=== PATIENT | female | born 1955 | race Caucasian/White ===

== ENCOUNTER 2021-05-12 15:09 | Inpatient (IN) ==
[2021-05-12 16:17] LABS: Basophils # 0.1 K/mcL (0.0-0.2); Basophils % 0.6 %; Eosinophils % 0.3 %; Hematocrit 49.9 % (35.3-44.9); Hemoglobin 15.2 g/dL (11.5-15.4); Immature Granulocytes % 0.3 % (0-4); Lymphocytes # 0.9 K/mcL (0.6-4.6); Lymphocytes % 9.9 %; Mean Corpuscular HGB Conc 30.5 g/dL (31.6-35.5); Mean Corpuscular Hemoglobin 27.3 pg (28.0-33.3); Mean Corpuscular Volume 89.6 fL (83.0-100.0); Mean Platelet Volume 9.4 fL (9.4-12.4); Monocytes % 11.4 %; Neutrophils # 6.8 K/mcL (1.6-8.9); Platelet Count 341 K/mcL (140-400); Red Blood Count 5.57 M/mcL (3.82-4.97); Red Cell Distribution Width 13.8 % (11.5-14.5); Segmented Neutrophils % 77.5 %; White Blood Count 8.8 K/mcL (4.3-11.1)
[2021-05-12 16:48] LABS: BUN/Creatinine Ratio 8 (6-26); Blood Urea Nitrogen 5 mg/dL (8-23); Carbon Dioxide 35 mEq/L (23-29); Chloride 98 mEq/L (98-107); Glucose 126 mg/dL (70-105); Osmolality,Calculated 287 (280-300); Potassium 3.8 mEq/L (3.5-5.1); Sodium 139 mEq/L (136-145); eGFR For African Americans > 60 (> 60); eGFR For Non-African Americans > 60 (> 60)
[2021-05-12 16:55] LABS: Troponin I < 0.03 ng/mL (< 0.04)
[2021-05-12] MEDS ORDERED: predniSONE 20 MG TABLET PO ONE (17:02)
[2021-05-12 18:14] LABS: Influenza A PCR Negative (Negative); Influenza B PCR Negative (Negative); Resp. Syncytial Virus PCR Negative (Negative); SARS-CoV-2 by PCR (In House) Negative (Negative)
[2021-05-12] MEDS ORDERED: Ipratropium/Albuterol Neb 3 ML IH ONE (18:35)
[2021-05-12] MEDS ORDERED: *HR* Promethazine 25 MG/ML VIAL IM PRN (20:21)
[2021-05-12] MEDS ORDERED: Acetaminophen 325 MG TABLET PO PRN (20:21)
[2021-05-12] MEDS ORDERED: Ondansetron 4 MG/2 ML VIAL IVP PRN (20:21)
[2021-05-12] MEDS ORDERED: Naloxone 0.4 MG/ML INJ IVP PRN (20:21)
[2021-05-12] MEDS ORDERED: Melatonin 3 MG TABLET PO PRN (20:21)
[2021-05-12] MEDS ORDERED: Ipratropium/Albuterol Neb 3 ML IH PRN (20:34)
[2021-05-12] MEDS: *HR* OxyCODONE/APAP 5/325 TABLET PO PRN (23:12)
[2021-05-12] MEDS: MethylPREDNISolone 40 MG/ML VIAL IVP SCH (23:12)
[2021-05-12] MEDS: Ipratropium/Albuterol Neb 3 ML IH SCH (23:51)
[2021-05-13] MEDS: Azithromycin 500 MG in 0.9 % Sodium Chloride 250 ML IVPB SCH (00:29)
[2021-05-13] MEDS: Ipratropium/Albuterol Neb 3 ML IH SCH ×6 (04:12→23:56)
[2021-05-13] MEDS: *HR* OxyCODONE/APAP 5/325 TABLET PO PRN ×2 (05:13→20:38)
[2021-05-13 06:04] LABS: Basophils % 0.4 %; Hematocrit 50.8 % (35.3-44.9); Hemoglobin 15.7 g/dL (11.5-15.4); Immature Granulocytes % 0.6 % (0-4); Lymphocytes # 0.4 K/mcL (0.6-4.6); Lymphocytes % 6.4 %; Mean Corpuscular HGB Conc 30.9 g/dL (31.6-35.5); Mean Corpuscular Hemoglobin 27.6 pg (28.0-33.3); Mean Corpuscular Volume 89.4 fL (83.0-100.0); Mean Platelet Volume 10.1 fL (9.4-12.4); Monocytes # 0.2 K/mcL (0.0-1.3); Monocytes % 2.5 %; Neutrophils # 6.2 K/mcL (1.6-8.9); Platelet Count 364 K/mcL (140-400); Red Blood Count 5.68 M/mcL (3.82-4.97); Red Cell Distribution Width 13.7 % (11.5-14.5); Segmented Neutrophils % 90.1 %; White Blood Count 6.9 K/mcL (4.3-11.1)
[2021-05-13 06:25] LABS: BUN/Creatinine Ratio 14 (6-26); Blood Urea Nitrogen 8 mg/dL (8-23); Calcium 9.2 mg/dL (8.6-10.3); Carbon Dioxide 28 mEq/L (23-29); Chloride 98 mEq/L (98-107); Glucose 185 mg/dL (70-105); Magnesium 1.8 mg/dL (1.6-2.6); Osmolality,Calculated 285 (280-300); Potassium 3.7 mEq/L (3.5-5.1); Sodium 136 mEq/L (136-145); eGFR For African Americans > 60 (> 60); eGFR For Non-African Americans > 60 (> 60)
[2021-05-13] MEDS: MethylPREDNISolone 40 MG/ML VIAL IVP SCH ×2 (08:27→15:13)
[2021-05-13] MEDS ORDERED: cloNIDine HCL 0.1 MG TABLET PO SCH (09:00)
[2021-05-13] MEDS ORDERED: *HR* HYDROcodone/Acet 5/325 mg TABLET PO PRN (09:45)
[2021-05-13] MEDS: Gabapentin 100 MG CAPSULE PO SCH ×3 (10:57→20:38)
[2021-05-13] MEDS ORDERED: Loratadine 10 MG TABLET PO SCH (16:45)
[2021-05-13] MEDS: *HR* Heparin 5,000 UNIT/ML VIAL SQ SCH (17:14)
[2021-05-13] MEDS: cloNIDine HCL 0.1 MG TABLET PO SCH (20:37)
[2021-05-14] MEDS: MethylPREDNISolone 40 MG/ML VIAL IVP SCH ×4 (00:04→23:07)
[2021-05-14] MEDS: Azithromycin 500 MG in 0.9 % Sodium Chloride 250 ML IVPB SCH ×2 (00:05→23:10)
[2021-05-14] MEDS: *HR* OxyCODONE/APAP 5/325 TABLET PO PRN ×3 (03:27→17:27)
[2021-05-14] MEDS: Ipratropium/Albuterol Neb 3 ML IH SCH ×6 (03:39→23:34)
[2021-05-14] MEDS: *HR* Heparin 5,000 UNIT/ML VIAL SQ SCH ×2 (05:08→17:20)
[2021-05-14 05:57] LABS: Basophils % 0.1 %; Hematocrit 52.9 % (35.3-44.9); Hemoglobin 15.6 g/dL (11.5-15.4); Immature Granulocytes % 0.6 % (0-4); Lymphocytes # 0.5 K/mcL (0.6-4.6); Lymphocytes % 7.3 %; Mean Corpuscular HGB Conc 29.5 g/dL (31.6-35.5); Mean Corpuscular Hemoglobin 26.5 pg (28.0-33.3); Mean Corpuscular Volume 89.8 fL (83.0-100.0); Monocytes # 0.4 K/mcL (0.0-1.3); Monocytes % 6.1 %; Neutrophils # 6.2 K/mcL (1.6-8.9); Platelet Count 387 K/mcL (140-400); Red Blood Count 5.89 M/mcL (3.82-4.97); Red Cell Distribution Width 13.7 % (11.5-14.5); Segmented Neutrophils % 85.9 %; White Blood Count 7.2 K/mcL (4.3-11.1)
[2021-05-14 06:21] LABS: BUN/Creatinine Ratio 17 (6-26); Blood Urea Nitrogen 12 mg/dL (8-23); Calcium 9.1 mg/dL (8.6-10.3); Carbon Dioxide 31 mEq/L (23-29); Chloride 98 mEq/L (98-107); Glucose 179 mg/dL (70-105); Osmolality,Calculated 290 (280-300); Potassium 3.8 mEq/L (3.5-5.1); Sodium 138 mEq/L (136-145); eGFR For African Americans > 60 (> 60); eGFR For Non-African Americans > 60 (> 60)
[2021-05-14] MEDS ORDERED: Isovue-370 500 ML BOTTLE IVP ONE (07:19)
[2021-05-14] MEDS: Gabapentin 100 MG CAPSULE PO SCH (07:38)
[2021-05-14] MEDS ORDERED: Ipratropium 1 PUFF INHALER IH PRN (10:09)
[2021-05-14] MEDS: Gabapentin 300 MG CAPSULE PO SCH ×3 (12:57→21:59)
[2021-05-14] MEDS ORDERED: Melatonin 3 MG TABLET PO PRN (15:16)
[2021-05-14] MEDS: *HR* LORazepam 2 MG/ML VIAL IVP PRN ×2 (17:20→23:45)
[2021-05-14 21:51] LABS: ABG Base Excess 6 mEq/L (-2 to 3); ABG HCO3 39 mEq/L (21-27); ABG Oxygen Saturation 84 % (95-98); ABG PCO2 93 mmHg (35-45); ABG PH 7.23 pH Units (7.32-7.45); ABG PO2 62 mmHg (85-104); ABG TCO2 42 mEq/L (20-26)
[2021-05-14] MEDS: cloNIDine HCL 0.1 MG TABLET PO SCH (21:59)
[2021-05-14] MEDS: Loratadine 10 MG TABLET PO SCH (21:59)
[2021-05-14] MEDS ORDERED: Haloperidol Lactate 5 MG/ML VIAL IVP ONE (22:55)
[2021-05-15] MEDS ORDERED: *HR* LORazepam 2 MG/ML VIAL IVP STA (01:25)
[2021-05-15] MEDS ORDERED: Haloperidol Lactate 5 MG/ML VIAL IVP ONE (02:56)
[2021-05-15] MEDS: Ipratropium/Albuterol Neb 3 ML IH SCH ×7 (03:08→23:28)
[2021-05-15] MEDS ORDERED: *HR* Midazolam HCl 5 MG/5 ML VIAL IVP ONE ×3 (03:37→16:54)
[2021-05-15] MEDS ORDERED: Artificial Tears SOLN 15 ML BOTTLE BOTH EYES PRN (03:50)
[2021-05-15 04:09] LABS: ABG Base Excess 7 mEq/L (-2 to 3); ABG HCO3 40 mEq/L (21-27); ABG Oxygen Saturation 100 % (95-98); ABG PCO2 91 mmHg (35-45); ABG PH 7.26 pH Units (7.32-7.45); ABG PO2 409 mmHg (85-104); ABG TCO2 43 mEq/L (20-26); Blood Gas VT 400 cc
[2021-05-15] MEDS: FentaNYL (PF) 1,000 MCG/100 ML IV.SOLN IVC SCH ×3 (04:22→17:06)
[2021-05-15] MEDS: Midazolam HCl 50 MG/100 ML IV.SOLN IVC SCH ×2 (05:24→13:46)
[2021-05-15 05:27] LABS: ABG Base Excess 8 mEq/L (-2 to 3); ABG HCO3 41 mEq/L (21-27); ABG Oxygen Saturation 100 % (95-98); ABG PCO2 91 mmHg (35-45); ABG PH 7.26 pH Units (7.32-7.45); ABG PO2 315 mmHg (85-104); ABG TCO2 44 mEq/L (20-26); Blood Gas Modality ASSIST CONTROL; Blood Gas VT 450 cc
[2021-05-15 06:38] LABS: Hemoglobin 16.2 g/dL (11.5-15.4); Immature Granulocytes % 0.4 % (0-4); Lymphocytes % 5.2 %
[2021-05-15 06:39] LABS: Basophils % 0.2 %; Hematocrit 54.8 % (35.3-44.9); Lymphocytes # 0.6 K/mcL (0.6-4.6); Mean Corpuscular HGB Conc 29.6 g/dL (31.6-35.5); Mean Corpuscular Hemoglobin 27.3 pg (28.0-33.3); Mean Corpuscular Volume 92.4 fL (83.0-100.0); Mean Platelet Volume 10.1 fL (9.4-12.4); Monocytes # 0.8 K/mcL (0.0-1.3); Monocytes % 7.3 %; Neutrophils # 9.7 K/mcL (1.6-8.9); Platelet Count 420 K/mcL (140-400); Red Blood Count 5.93 M/mcL (3.82-4.97); Red Cell Distribution Width 13.7 % (11.5-14.5); Segmented Neutrophils % 86.9 %; White Blood Count 11.1 K/mcL (4.3-11.1)
[2021-05-15 06:52] LABS: BUN/Creatinine Ratio 17 (6-26); Blood Urea Nitrogen 10 mg/dL (8-23); Calcium 9.1 mg/dL (8.6-10.3); Carbon Dioxide 34 mEq/L (23-29); Chloride 98 mEq/L (98-107); Glucose 206 mg/dL (70-105); Osmolality,Calculated 295 (280-300); Potassium 3.7 mEq/L (3.5-5.1); Sodium 140 mEq/L (136-145); eGFR For African Americans > 60 (> 60); eGFR For Non-African Americans > 60 (> 60)
[2021-05-15] MEDS: Artificial Tears SOLN 15 ML BOTTLE BOTH EYES SCH ×6 (07:35→23:36)
[2021-05-15] MEDS: *HR* Heparin 5,000 UNIT/ML VIAL SQ SCH ×2 (07:40→19:56)
[2021-05-15] MEDS: MethylPREDNISolone 40 MG/ML VIAL IVP SCH ×2 (07:42→16:55)
[2021-05-15] MEDS: Loratadine 10 MG TABLET PO SCH (07:44)
[2021-05-15] MEDS: Gabapentin 300 MG CAPSULE PO SCH ×4 (07:45→19:56)
[2021-05-15] MEDS: Chlorhexidine Rinse 15 ML MOUTHWASH MM SCH ×2 (07:51→19:56)
[2021-05-15 12:23] LABS: ABG Base Excess 10 mEq/L (-2 to 3); ABG HCO3 39 mEq/L (21-27); ABG Oxygen Saturation 99 % (95-98); ABG PCO2 65 mmHg (35-45); ABG PH 7.38 pH Units (7.32-7.45); ABG PO2 124 mmHg (85-104); ABG TCO2 41 mEq/L (20-26); Blood Gas VT 450 cc
[2021-05-15] MEDS ORDERED: *HR* Etomidate 20 MG/10 ML AMPUL IVP ONE (16:54)
[2021-05-15] MEDS ORDERED: *HR* Midazolam HCl 2 MG/2 ML VIAL IVP ONE (16:54)
[2021-05-15] MEDS ORDERED: *HR* Rocuronium Bromide 50 MG/5 ML VIAL IVP ONE (16:54)
[2021-05-15] MEDS: cloNIDine HCL 0.1 MG TABLET PO SCH (19:56)
[2021-05-15] MEDS: Furosemide 40 MG/4 ML VIAL IVP SCH (19:56)
[2021-05-15] MEDS: FentaNYL (PF) 2,500 MCG/50 ML IV.SOLN IVC SCH (23:35)
[2021-05-15] MEDS: Azithromycin 500 MG in 0.9 % Sodium Chloride 250 ML IVPB SCH (23:36)
[2021-05-16] MEDS: MethylPREDNISolone 40 MG/ML VIAL IVP SCH ×4 (00:10→23:56)
[2021-05-16] MEDS: Midazolam HCl 50 MG/100 ML IV.SOLN IVC SCH ×2 (01:08→15:28)
[2021-05-16] MEDS: Ipratropium/Albuterol Neb 3 ML IH SCH ×5 (03:53→19:56)
[2021-05-16 04:18] LABS: ABG Base Excess 10 mEq/L (-2 to 3); ABG HCO3 37 mEq/L (21-27); ABG Oxygen Saturation 88 % (95-98); ABG PCO2 54 mmHg (35-45); ABG PH 7.44 pH Units (7.32-7.45); ABG PO2 55 mmHg (85-104); ABG TCO2 38 mEq/L (20-26); Blood Gas VT 360 cc
[2021-05-16] MEDS: Artificial Tears SOLN 15 ML BOTTLE BOTH EYES SCH ×6 (05:10→23:54)
[2021-05-16] MEDS: Dexmedetomidine HCl 400 MCG/100 ML MLS IVC SCH (06:22)
[2021-05-16] MEDS: Gabapentin 300 MG CAPSULE PO SCH ×4 (08:08→19:37)
[2021-05-16] MEDS: Loratadine 10 MG TABLET PO SCH (08:08)
[2021-05-16] MEDS: Chlorhexidine Rinse 15 ML MOUTHWASH MM SCH ×2 (08:08→19:36)
[2021-05-16] MEDS: *HR* Heparin 5,000 UNIT/ML VIAL SQ SCH ×3 (08:09→19:37)
[2021-05-16] MEDS: Furosemide 40 MG/4 ML VIAL IVP SCH ×2 (08:09→19:37)
[2021-05-16] MEDS: FentaNYL (PF) 2,500 MCG/50 ML IV.SOLN IVC SCH ×2 (08:30→18:41)
[2021-05-16] MEDS: Pantoprazole 40 MG VIAL IVP SCH (12:10)
[2021-05-16] MEDS: Azithromycin 500 MG in 0.9 % Sodium Chloride 250 ML IVPB SCH (23:55)
[2021-05-17] MEDS: Ipratropium/Albuterol Neb 3 ML IH SCH ×3 (00:36→10:27)
[2021-05-17] MEDS: Midazolam HCl 50 MG/100 ML IV.SOLN IVC SCH ×2 (03:20→14:41)
[2021-05-17] MEDS: Artificial Tears SOLN 15 ML BOTTLE BOTH EYES SCH ×5 (04:36→20:30)
[2021-05-17 05:00] LABS: ABG Base Excess 10 mEq/L (-2 to 3); ABG HCO3 39 mEq/L (21-27); ABG Oxygen Saturation 93 % (95-98); ABG PCO2 65 mmHg (35-45); ABG PH 7.38 pH Units (7.32-7.45); ABG PO2 70 mmHg (85-104); ABG TCO2 41 mEq/L (20-26); Blood Gas Modality ASSIST CONTROL; Blood Gas VT 360 cc
[2021-05-17 05:33] LABS: Basophils % 0.1 %; Hematocrit 53.3 % (35.3-44.9); Hemoglobin 15.8 g/dL (11.5-15.4); Immature Granulocytes % 0.4 % (0-4); Lymphocytes # 0.8 K/mcL (0.6-4.6); Lymphocytes % 10.1 %; Mean Corpuscular HGB Conc 29.6 g/dL (31.6-35.5); Mean Corpuscular Hemoglobin 26.6 pg (28.0-33.3); Mean Corpuscular Volume 89.7 fL (83.0-100.0); Mean Platelet Volume 9.9 fL (9.4-12.4); Monocytes # 0.6 K/mcL (0.0-1.3); Monocytes % 8.4 %; Platelet Count 304 K/mcL (140-400); Red Blood Count 5.94 M/mcL (3.82-4.97); Red Cell Distribution Width 13.9 % (11.5-14.5); White Blood Count 7.4 K/mcL (4.3-11.1)
[2021-05-17 05:47] LABS: BUN/Creatinine Ratio 37 (6-26); Blood Urea Nitrogen 24 mg/dL (8-23); Calcium 8.6 mg/dL (8.6-10.3); Carbon Dioxide 37 mEq/L (23-29); Chloride 94 mEq/L (98-107); Glucose 206 mg/dL (70-105); Magnesium 2.3 mg/dL (1.6-2.6); Osmolality,Calculated 302 (280-300); Potassium 3.3 mEq/L (3.5-5.1); Sodium 141 mEq/L (136-145); eGFR For African Americans > 60 (> 60); eGFR For Non-African Americans > 60 (> 60)
[2021-05-17] MEDS: FentaNYL (PF) 2,500 MCG/50 ML IV.SOLN IVC SCH ×2 (08:12→20:11)
[2021-05-17] MEDS: Pantoprazole 40 MG VIAL IVP SCH (08:44)
[2021-05-17] MEDS: Gabapentin 300 MG CAPSULE PO SCH ×4 (08:45→20:58)
[2021-05-17] MEDS: MethylPREDNISolone 40 MG/ML VIAL IVP SCH ×2 (08:45→17:04)
[2021-05-17] MEDS: Chlorhexidine Rinse 15 ML MOUTHWASH MM SCH ×2 (08:45→20:56)
[2021-05-17] MEDS: *HR* Heparin 5,000 UNIT/ML VIAL SQ SCH ×3 (08:45→20:58)
[2021-05-17] MEDS: Furosemide 40 MG/4 ML VIAL IVP SCH ×2 (08:45→20:56)
[2021-05-17] MEDS: Loratadine 10 MG TABLET PO SCH (08:45)
[2021-05-17] MEDS: Dexmedetomidine HCl 400 MCG/100 ML MLS IVC SCH ×2 (08:46→17:57)
[2021-05-17] MEDS: Levalbuterol Neb 1.25 MG/3 ML IH SCH ×3 (10:41→21:15)
[2021-05-17] MEDS: Haloperidol Lactate 5 MG/ML VIAL IVP SCH ×2 (11:37→20:57)
[2021-05-17] MEDS ORDERED: Perflutren Lipid Microsphere 1.3 ML in 0.9 % Sodium Chloride 8.7 ML IVP PRN (17:20)
[2021-05-17] MEDS: Potassium Chloride Elixir 20 MEQ/15 ML UDC GTUBE SCH ×2 (17:27→22:21)
[2021-05-17] MEDS ORDERED: Potassium Chloride Elixir 20 MEQ/15 ML UDC GTUBE SCH (21:00)
[2021-05-18] MEDS: Midazolam HCl 50 MG/100 ML IV.SOLN IVC SCH (01:35)
[2021-05-18] MEDS: Artificial Tears SOLN 15 ML BOTTLE BOTH EYES SCH ×6 (02:53→19:47)
[2021-05-18] MEDS: MethylPREDNISolone 40 MG/ML VIAL IVP SCH ×3 (02:53→19:46)
[2021-05-18] MEDS: Levalbuterol Neb 1.25 MG/3 ML IH SCH ×4 (03:32→21:57)
[2021-05-18 04:33] LABS: ABG Base Excess 12 mEq/L (-2 to 3); ABG HCO3 43 mEq/L (21-27); ABG Oxygen Saturation 88 % (95-98); ABG PCO2 81 mmHg (35-45); ABG PH 7.33 pH Units (7.32-7.45); ABG PO2 63 mmHg (85-104); ABG TCO2 46 mEq/L (20-26); Blood Gas VT 360 cc
[2021-05-18] MEDS: Haloperidol Lactate 5 MG/ML VIAL IVP SCH ×3 (04:33→22:28)
[2021-05-18 07:20] LABS: Basophils % 0.1 %; Hematocrit 54.9 % (35.3-44.9); Hemoglobin 15.7 g/dL (11.5-15.4); Immature Granulocytes % 0.3 % (0-4); Lymphocytes # 0.5 K/mcL (0.6-4.6); Lymphocytes % 3.8 %; Mean Corpuscular HGB Conc 28.6 g/dL (31.6-35.5); Mean Corpuscular Hemoglobin 26.7 pg (28.0-33.3); Mean Corpuscular Volume 93.4 fL (83.0-100.0); Mean Platelet Volume 10.1 fL (9.4-12.4); Monocytes # 0.7 K/mcL (0.0-1.3); Monocytes % 5.1 %; Neutrophils # 12.4 K/mcL (1.6-8.9); Platelet Count 329 K/mcL (140-400); Red Blood Count 5.88 M/mcL (3.82-4.97); Segmented Neutrophils % 90.7 %; White Blood Count 13.7 K/mcL (4.3-11.1)
[2021-05-18 08:24] LABS: BUN/Creatinine Ratio 52 (6-26); Blood Urea Nitrogen 38 mg/dL (8-23); Calcium 8.9 mg/dL (8.6-10.3); Carbon Dioxide 39 mEq/L (23-29); Chloride 95 mEq/L (98-107); Glucose 212 mg/dL (70-105); Magnesium 2.7 mg/dL (1.6-2.6); Osmolality,Calculated 311 (280-300); Phosphorous 5.5 mg/dL (2.7-4.5); Potassium 4.3 mEq/L (3.5-5.1); Sodium 143 mEq/L (136-145); eGFR For African Americans > 60 (> 60); eGFR For Non-African Americans > 60 (> 60)
[2021-05-18] MEDS: Chlorhexidine Rinse 15 ML MOUTHWASH MM SCH ×2 (08:47→19:47)
[2021-05-18] MEDS: *HR* Heparin 5,000 UNIT/ML VIAL SQ SCH ×3 (08:48→19:46)
[2021-05-18] MEDS: Pantoprazole 40 MG VIAL IVP SCH (08:48)
[2021-05-18] MEDS: Loratadine 10 MG TABLET PO SCH (08:48)
[2021-05-18] MEDS: Gabapentin 300 MG CAPSULE PO SCH ×4 (08:48→19:48)
[2021-05-18] MEDS: Potassium Chloride Elixir 20 MEQ/15 ML UDC GTUBE SCH ×2 (08:48→19:48)
[2021-05-18] MEDS: Furosemide 40 MG/4 ML VIAL IVP SCH ×2 (08:48→19:45)
[2021-05-18 09:48] LABS: Platelet Estimate Normal (Normal); Stomatocytes 1+ (Not Present)
[2021-05-18] MEDS ORDERED: Fluconazole 400 MG/200 ML 400 MG/200 ML BAG IVPB ONE (13:00)
[2021-05-18] MEDS: Nystatin POWDER 30 GM BOTTLE TP SCH ×2 (14:42→19:56)
[2021-05-18] MEDS: cloNIDine HCL 0.1 MG TABLET PO SCH ×3 (19:22→19:48)
[2021-05-18] MEDS: Dexmedetomidine HCl 400 MCG/100 ML MLS IVC SCH (19:23)
[2021-05-18] MEDS: Nystatin SUSP 5 ML UD.LIQ BC SCH ×2 (19:47)
[2021-05-18 22:57] LABS: ABG Base Excess 16 mEq/L (-2 to 3); ABG HCO3 48 mEq/L (21-27); ABG Oxygen Saturation 100 % (95-98); ABG PCO2 77 mmHg (35-45); ABG PO2 200 mmHg (85-104); ABG TCO2 50 mEq/L (20-26)
[2021-05-19 00:13] LABS: ABG Base Excess 15 mEq/L (-2 to 3); ABG HCO3 46 mEq/L (21-27); ABG Oxygen Saturation 96 % (95-98); ABG PCO2 74 mmHg (35-45); ABG PO2 90 mmHg (85-104); ABG TCO2 48 mEq/L (20-26)
[2021-05-19] MEDS: MethylPREDNISolone 40 MG/ML VIAL IVP SCH ×4 (00:15→23:22)
[2021-05-19] MEDS: Artificial Tears SOLN 15 ML BOTTLE BOTH EYES SCH ×6 (00:15→19:46)
[2021-05-19] MEDS: Dexmedetomidine HCl 400 MCG/100 ML MLS IVC SCH ×4 (01:45→20:30)
[2021-05-19] MEDS ORDERED: *HR* LORazepam 2 MG/ML VIAL ONE (01:48)
[2021-05-19] MEDS: *HR* LORazepam 2 MG/ML VIAL IVP PRN ×5 (01:55→23:22)
[2021-05-19] MEDS: Levalbuterol Neb 1.25 MG/3 ML IH SCH ×4 (03:26→21:58)
[2021-05-19] MEDS: Haloperidol Lactate 5 MG/ML VIAL IVP SCH ×3 (04:41→19:46)
[2021-05-19 08:53] LABS: Basophils % 0.3 %; Hemoglobin 16.8 g/dL (11.5-15.4); Immature Granulocytes % 1.1 % (0-4); Lymphocytes # 0.6 K/mcL (0.6-4.6); Lymphocytes % 4.9 %; Mean Corpuscular HGB Conc 29.6 g/dL (31.6-35.5); Mean Corpuscular Hemoglobin 27.3 pg (28.0-33.3); Mean Corpuscular Volume 92.2 fL (83.0-100.0); Mean Platelet Volume 10.5 fL (9.4-12.4); Monocytes # 0.7 K/mcL (0.0-1.3); Monocytes % 5.3 %; Neutrophils # 10.9 K/mcL (1.6-8.9); Platelet Count 286 K/mcL (140-400); Red Blood Count 6.15 M/mcL (3.82-4.97); Red Cell Distribution Width 13.9 % (11.5-14.5); Segmented Neutrophils % 88.4 %; White Blood Count 12.4 K/mcL (4.3-11.1)
[2021-05-19 08:54] LABS: Hematocrit 56.7 % (35.3-44.9)
[2021-05-19] MEDS: Potassium Chloride Elixir 20 MEQ/15 ML UDC GTUBE SCH ×2 (09:02→19:47)
[2021-05-19] MEDS: Nystatin SUSP 5 ML UD.LIQ BC SCH ×4 (09:02→19:46)
[2021-05-19] MEDS: Chlorhexidine Rinse 15 ML MOUTHWASH MM SCH ×2 (09:02→19:47)
[2021-05-19] MEDS: *HR* Heparin 5,000 UNIT/ML VIAL SQ SCH ×3 (09:02→19:46)
[2021-05-19] MEDS: Pantoprazole 40 MG VIAL IVP SCH (09:03)
[2021-05-19] MEDS: cloNIDine HCL 0.1 MG TABLET PO SCH ×3 (09:03→19:47)
[2021-05-19] MEDS: Fluconazole 200 MG/100 ML 200 MG/100 ML BAG IVPB SCH (09:03)
[2021-05-19] MEDS: Gabapentin 300 MG CAPSULE PO SCH ×4 (09:03→19:47)
[2021-05-19] MEDS: Loratadine 10 MG TABLET PO SCH (09:03)
[2021-05-19] MEDS: Furosemide 40 MG/4 ML VIAL IVP SCH ×2 (09:03→19:46)
[2021-05-19] MEDS: Nystatin POWDER 30 GM BOTTLE TP SCH ×3 (09:04→20:06)
[2021-05-19 09:27] LABS: BUN/Creatinine Ratio 60 (6-26); Blood Urea Nitrogen 32 mg/dL (8-23); Calcium 9.5 mg/dL (8.6-10.3); Carbon Dioxide 44 mEq/L (23-29); Chloride 92 mEq/L (98-107); Glucose 219 mg/dL (70-105); Magnesium 2.7 mg/dL (1.6-2.6); Osmolality,Calculated 308 (280-300); Phosphorous 3.2 mg/dL (2.7-4.5); Potassium 4.6 mEq/L (3.5-5.1); Sodium 142 mEq/L (136-145); eGFR For African Americans > 60 (> 60); eGFR For Non-African Americans > 60 (> 60)
[2021-05-19 10:01] LABS: ABG Base Excess 21 mEq/L (-2 to 3); ABG HCO3 55 mEq/L (21-27); ABG Oxygen Saturation 99 % (95-98); ABG PCO2 89 mmHg (35-45); ABG PO2 151 mmHg (85-104); ABG TCO2 > 50 mEq/L (20-26); Blood Gas Pressure Support 16 cm H2O
[2021-05-19] MEDS ORDERED: *HR* Metoprolol 5 MG/5 ML VIAL IVP ONE ×2 (16:50→17:02)
[2021-05-20] MEDS: Artificial Tears SOLN 15 ML BOTTLE BOTH EYES SCH ×4 (00:28→21:45)
[2021-05-20] MEDS: Dexmedetomidine HCl 400 MCG/100 ML MLS IVC SCH ×4 (01:28→22:55)
[2021-05-20] MEDS: Levalbuterol Neb 1.25 MG/3 ML IH SCH ×4 (03:15→21:45)
[2021-05-20] MEDS: Haloperidol Lactate 5 MG/ML VIAL IVP SCH ×2 (03:22→22:56)
[2021-05-20] MEDS: *HR* LORazepam 2 MG/ML VIAL IVP PRN ×2 (05:18→21:46)
[2021-05-20] MEDS: Pantoprazole 40 MG VIAL IVP SCH (08:33)
[2021-05-20] MEDS: MethylPREDNISolone 40 MG/ML VIAL IVP SCH ×2 (08:33→16:13)
[2021-05-20] MEDS: *HR* Heparin 5,000 UNIT/ML VIAL SQ SCH ×2 (08:34→21:52)
[2021-05-20] MEDS: Fluconazole 200 MG/100 ML 200 MG/100 ML BAG IVPB SCH (08:34)
[2021-05-20 08:47] LABS: Hemoglobin 17.3 g/dL (11.5-15.4); Mean Corpuscular Hemoglobin 26.9 pg (28.0-33.3); Mean Corpuscular Volume 89.7 fL (83.0-100.0); Mean Platelet Volume 10.4 fL (9.4-12.4); Platelet Count 335 K/mcL (140-400); Red Blood Count 6.43 M/mcL (3.82-4.97); Red Cell Distribution Width 13.5 % (11.5-14.5); White Blood Count 11.7 K/mcL (4.3-11.1)
[2021-05-20 08:53] LABS: Hematocrit 57.7 % (35.3-44.9)
[2021-05-20 09:10] LABS: BUN/Creatinine Ratio 63 (6-26); Blood Urea Nitrogen 38 mg/dL (8-23); Calcium 9.9 mg/dL (8.6-10.3); Carbon Dioxide 44 mEq/L (23-29); Chloride 89 mEq/L (98-107); Glucose 219 mg/dL (70-105); Magnesium 2.9 mg/dL (1.6-2.6); Osmolality,Calculated 308 (280-300); Phosphorous 3.5 mg/dL (2.7-4.5); Potassium 4.1 mEq/L (3.5-5.1); Sodium 141 mEq/L (136-145); eGFR For African Americans > 60 (> 60); eGFR For Non-African Americans > 60 (> 60)
[2021-05-20] MEDS: Nystatin POWDER 30 GM BOTTLE TP SCH ×3 (09:31→21:47)
[2021-05-20] MEDS ORDERED: Dextrose Gel 15 GM/37.5 ML TUBE PO PRN ×4 (10:42→12:48)
[2021-05-20] MEDS ORDERED: D5% in Water 1,000 ML IVC PRN ×2 (10:42→12:48)
[2021-05-20] MEDS ORDERED: *HR* Dextrose 50 % in Water (Vial) 50 ML VIAL IVP PRN (10:42)
[2021-05-20] MEDS: Furosemide 40 MG/4 ML VIAL IVP SCH ×2 (10:50→16:14)
[2021-05-20] MEDS: Loratadine 10 MG TABLET PO SCH (10:50)
[2021-05-20] MEDS: Gabapentin 300 MG CAPSULE PO SCH ×4 (10:50→21:47)
[2021-05-20] MEDS: cloNIDine HCL 0.1 MG TABLET PO SCH ×3 (10:50→21:44)
[2021-05-20] MEDS: Nystatin SUSP 5 ML UD.LIQ BC SCH ×4 (10:51→21:47)
[2021-05-20] MEDS ORDERED: Insulin LISPRO 300 UNITS/3 ML VIAL SUBQ SCH (12:00)
[2021-05-20] MEDS ORDERED: Ipratropium 1 PUFF INHALER IH PRN (12:48)
[2021-05-20] MEDS ORDERED: Naloxone 0.4 MG/ML INJ IVP PRN (12:48)
[2021-05-20] MEDS ORDERED: Artificial Tears SOLN 15 ML BOTTLE BOTH EYES PRN (12:48)
[2021-05-20] MEDS ORDERED: *HR* Dextrose 50 % in Water (Syg) 50 ML SYRINGE IVP PRN (13:20)
[2021-05-20] MEDS: Insulin LISPRO 300 UNITS/3 ML VIAL SUBQ SCH (17:17)
[2021-05-20] MEDS ORDERED: Insulin DETEMIR 100 UNIT/ML X5UNITS SUBQ SCH (21:00)
[2021-05-20] MEDS: Chlorhexidine Rinse 15 ML MOUTHWASH MM SCH (21:44)
[2021-05-20] MEDS: Insulin DETEMIR 100 UNIT/ML X5UNITS SUBQ SCH (21:52)
[2021-05-21] MEDS: Insulin LISPRO 300 UNITS/3 ML VIAL SUBQ SCH ×5 (00:59→23:56)
[2021-05-21] MEDS: Artificial Tears SOLN 15 ML BOTTLE BOTH EYES SCH ×9 (00:59→23:57)
[2021-05-21] MEDS: MethylPREDNISolone 40 MG/ML VIAL IVP SCH ×4 (00:59→23:56)
[2021-05-21] MEDS: *HR* LORazepam 2 MG/ML VIAL IVP PRN (02:06)
[2021-05-21 03:51] LABS: Hemoglobin 18.4 g/dL (11.5-15.4); Mean Corpuscular HGB Conc 29.6 g/dL (31.6-35.5); Mean Corpuscular Hemoglobin 26.7 pg (28.0-33.3); Mean Corpuscular Volume 90.3 fL (83.0-100.0); Mean Platelet Volume 11.8 fL (9.4-12.4); Platelet Count 169 K/mcL (140-400); Red Blood Count 6.89 M/mcL (3.82-4.97); Red Cell Distribution Width 14.9 % (11.5-14.5); White Blood Count 12.7 K/mcL (4.3-11.1)
[2021-05-21 04:07] LABS: Hematocrit 62.2 % (35.3-44.9)
[2021-05-21] MEDS: Levalbuterol Neb 1.25 MG/3 ML IH SCH ×4 (04:15→21:08)
[2021-05-21 04:27] LABS: BUN/Creatinine Ratio 63 (6-26); Blood Urea Nitrogen 55 mg/dL (8-23); Calcium 10.1 mg/dL (8.6-10.3); Carbon Dioxide 41 mEq/L (23-29); Chloride 86 mEq/L (98-107); Glucose 246 mg/dL (70-105); Magnesium 2.9 mg/dL (1.6-2.6); Osmolality,Calculated 315 (280-300); Potassium 4.3 mEq/L (3.5-5.1); Sodium 141 mEq/L (136-145); eGFR For African Americans > 60 (> 60); eGFR For Non-African Americans > 60 (> 60)
[2021-05-21] MEDS: *HR* Heparin 5,000 UNIT/ML VIAL SQ SCH ×3 (04:50→21:06)
[2021-05-21] MEDS: Haloperidol Lactate 5 MG/ML VIAL IVP SCH ×4 (04:50→23:07)
[2021-05-21] MEDS: Dexmedetomidine HCl 400 MCG/100 ML MLS IVC SCH ×3 (05:03→21:21)
[2021-05-21] MEDS: Furosemide 40 MG/4 ML VIAL IVP SCH ×2 (08:31→16:44)
[2021-05-21] MEDS: Pantoprazole 40 MG VIAL IVP SCH (08:31)
[2021-05-21] MEDS: Chlorhexidine Rinse 15 ML MOUTHWASH MM SCH ×3 (08:32→23:07)
[2021-05-21] MEDS: Nystatin POWDER 30 GM BOTTLE TP SCH ×3 (08:33→23:04)
[2021-05-21] MEDS: cloNIDine HCL 0.1 MG TABLET PO SCH ×3 (08:38→21:05)
[2021-05-21] MEDS: Loratadine 10 MG TABLET PO SCH (08:38)
[2021-05-21] MEDS: Nystatin SUSP 5 ML UD.LIQ BC SCH ×4 (08:39→23:03)
[2021-05-21] MEDS: Gabapentin 300 MG CAPSULE PO SCH ×4 (08:39→21:06)
[2021-05-21 11:07] LABS: ABG Base Excess 18 mEq/L (-2 to 3); ABG HCO3 49 mEq/L (21-27); ABG Oxygen Saturation 99 % (95-98); ABG PCO2 70 mmHg (35-45); ABG PH 7.46 pH Units (7.32-7.45); ABG PO2 156 mmHg (85-104); ABG TCO2 > 50 mEq/L (20-26)
[2021-05-21] MEDS: Fluconazole 200 MG/100 ML 200 MG/100 ML BAG IVPB SCH (11:40)
[2021-05-21 14:20] LABS: Adenovirus Not Detected (Not Detect); Bordetella Pertussis Not Detected (Not Detect); Coronavirus 229E Not Detected (Not Detect); Coronavirus HKU1 Not Detected (Not Detect); Coronavirus NL63 Not Detected (Not Detect); Coronavirus OC43 Not Detected (Not Detect); Human Metapneumovirus Not Detected (Not Detect); Human Rhinovirus/Enterovirus Not Detected (Not Detect); Influenza A Subtype 2009 H1 Not Detected (Not Detect); Influenza B Not Detected (Not Detect); Parainfluenza Virus 1 Not Detected (Not Detect); Parainfluenza Virus 2 Not Detected (Not Detect); Parainfluenza Virus 3 Not Detected (Not Detect); Parainfluenza Virus 4 Not Detected (Not Detect); Respiratory Syncytial Virus Not Detected (Not Detect); SARS-CoV-2 Not Detected (Not Detect)
[2021-05-21 14:21] LABS: Chlamydophila pneumoniae Not Detected (Not Detect); Mycoplasma pneumoniae Not Detected (Not Detect)
[2021-05-21] MEDS: Insulin DETEMIR 100 UNIT/ML X5UNITS SUBQ SCH (21:05)
[2021-05-21] MEDS: Potassium Chloride Elixir 20 MEQ/15 ML UDC GTUBE SCH (23:07)
[2021-05-22 02:48] LABS: Hemoglobin 18.8 g/dL (11.5-15.4); Mean Corpuscular Hemoglobin 27.1 pg (28.0-33.3); Mean Corpuscular Volume 90.1 fL (83.0-100.0); Platelet Count 358 K/mcL (140-400); Red Blood Count 6.95 M/mcL (3.82-4.97); Red Cell Distribution Width 14.6 % (11.5-14.5); White Blood Count 17.7 K/mcL (4.3-11.1)
[2021-05-22 02:49] LABS: Hematocrit 62.6 % (35.3-44.9)
[2021-05-22] MEDS: Dexmedetomidine HCl 400 MCG/100 ML MLS IVC SCH (03:19)
[2021-05-22] MEDS: Levalbuterol Neb 1.25 MG/3 ML IH SCH ×4 (03:34→21:46)
[2021-05-22] MEDS: Haloperidol Lactate 5 MG/ML VIAL IVP SCH ×3 (03:49→20:16)
[2021-05-22 04:01] LABS: BUN/Creatinine Ratio 70 (6-26); Blood Urea Nitrogen 52 mg/dL (8-23); Carbon Dioxide 42 mEq/L (23-29); Chloride 89 mEq/L (98-107); Glucose 241 mg/dL (70-105); Osmolality,Calculated 320 (280-300); Potassium 3.7 mEq/L (3.5-5.1); Sodium 144 mEq/L (136-145); eGFR For African Americans > 60 (> 60); eGFR For Non-African Americans > 60 (> 60)
[2021-05-22] MEDS: Artificial Tears SOLN 15 ML BOTTLE BOTH EYES SCH ×5 (05:42→20:17)
[2021-05-22] MEDS: *HR* Heparin 5,000 UNIT/ML VIAL SQ SCH ×3 (05:43→22:43)
[2021-05-22] MEDS: Insulin LISPRO 300 UNITS/3 ML VIAL SUBQ SCH ×4 (05:43→22:43)
[2021-05-22 05:55] LABS: Bilirubin,Urine Moderate (Negative); Blood,Urine Large (Negative); Clarity,Urine Slightly Cloudy (Clear); Color,Urine Amber (Yellow); Glucose,Urine (UA) 100 mg/dL (Normal); Ketones,Urine Negative (Negative); Leukocyte Esterase,Urine Trace (Negative); Nitrite,Urine Negative (Negative); Protein,Urine >=300 mg/dL (Neg-Trace); Specific Gravity,Urine >= 1.030 (1.010-1.025)
[2021-05-22] MEDS: Furosemide 40 MG/4 ML VIAL IVP SCH ×2 (10:51→18:27)
[2021-05-22] MEDS: Fluconazole 200 MG/100 ML 200 MG/100 ML BAG IVPB SCH (10:51)
[2021-05-22] MEDS: Nystatin POWDER 30 GM BOTTLE TP SCH ×3 (10:52→20:18)
[2021-05-22] MEDS: MethylPREDNISolone 40 MG/ML VIAL IVP SCH ×2 (10:52→18:26)
[2021-05-22] MEDS: Pantoprazole 40 MG VIAL IVP SCH (10:52)
[2021-05-22] MEDS: Nystatin SUSP 5 ML UD.LIQ BC SCH ×4 (10:53→20:17)
[2021-05-22] MEDS: Loratadine 10 MG TABLET PO SCH (10:53)
[2021-05-22] MEDS: Chlorhexidine Rinse 15 ML MOUTHWASH MM SCH ×2 (10:53→20:18)
[2021-05-22] MEDS: cloNIDine HCL 0.1 MG TABLET PO SCH ×3 (10:53→20:17)
[2021-05-22] MEDS: Gabapentin 300 MG CAPSULE PO SCH ×4 (10:53→20:17)
[2021-05-22] MEDS ORDERED: E-Z-HD (BARIUM SULF) SUSPENSION PO ONE (12:40)
[2021-05-22] MEDS ORDERED: E-Z-PAQUE (BARIUM SULF) SUSP 1 BOTTLE PO ONE (12:40)
[2021-05-22] MEDS: Albumin 25% 25gram/100mL 25 GM/100 ML IV.SOLN IVC SCH ×2 (13:03→14:45)
[2021-05-22] MEDS: Acetaminophen 325 MG TABLET PO PRN (20:30)
[2021-05-22] MEDS: Insulin DETEMIR 100 UNIT/ML X5UNITS SUBQ SCH (22:43)
[2021-05-23] MEDS: MethylPREDNISolone 40 MG/ML VIAL IVP SCH ×3 (00:08→17:36)
[2021-05-23] MEDS: Artificial Tears SOLN 15 ML BOTTLE BOTH EYES SCH ×6 (00:12→21:35)
[2021-05-23] MEDS: Levalbuterol Neb 1.25 MG/3 ML IH SCH ×2 (03:24→10:31)
[2021-05-23] MEDS: Haloperidol Lactate 5 MG/ML VIAL IVP SCH ×3 (03:57→21:19)
[2021-05-23] MEDS: Acetaminophen 325 MG TABLET PO PRN (03:58)
[2021-05-23 05:16] LABS: Mean Corpuscular HGB Conc 29.8 g/dL (31.6-35.5); Mean Corpuscular Hemoglobin 26.9 pg (28.0-33.3); Mean Corpuscular Volume 90.4 fL (83.0-100.0); Mean Platelet Volume 11.1 fL (9.4-12.4); Platelet Count 314 K/mcL (140-400); Red Blood Count 6.68 M/mcL (3.82-4.97); Red Cell Distribution Width 14.2 % (11.5-14.5); White Blood Count 16.9 K/mcL (4.3-11.1)
[2021-05-23 05:23] LABS: Hematocrit 60.4 % (35.3-44.9)
[2021-05-23 06:13] LABS: BUN/Creatinine Ratio 75 (6-26); Blood Urea Nitrogen 58 mg/dL (8-23); Calcium 10.8 mg/dL (8.6-10.3); Carbon Dioxide 44 mEq/L (23-29); Chloride 87 mEq/L (98-107); Glucose 259 mg/dL (70-105); Magnesium 3.2 mg/dL (1.6-2.6); Osmolality,Calculated 327 (280-300); Potassium 3.8 mEq/L (3.5-5.1); Sodium 146 mEq/L (136-145); eGFR For African Americans > 60 (> 60); eGFR For Non-African Americans > 60 (> 60)
[2021-05-23] MEDS: *HR* Heparin 5,000 UNIT/ML VIAL SQ SCH ×3 (06:26→21:41)
[2021-05-23 06:37] LABS: ABG Base Excess 19 mEq/L (-2 to 3); ABG HCO3 52 mEq/L (21-27); ABG Oxygen Saturation 97 % (95-98); ABG PCO2 80 mmHg (35-45); ABG PH 7.42 pH Units (7.32-7.45); ABG PO2 100 mmHg (85-104); ABG TCO2 > 50 mEq/L (20-26)
[2021-05-23] MEDS: Chlorhexidine Rinse 15 ML MOUTHWASH MM SCH ×2 (08:42→21:01)
[2021-05-23] MEDS: Pantoprazole 40 MG VIAL IVP SCH (08:42)
[2021-05-23] MEDS: Nystatin SUSP 5 ML UD.LIQ BC SCH ×4 (08:43→21:40)
[2021-05-23] MEDS: Loratadine 10 MG TABLET PO SCH (08:43)
[2021-05-23] MEDS: Furosemide 40 MG/4 ML VIAL IVP SCH (08:43)
[2021-05-23] MEDS: Gabapentin 300 MG CAPSULE PO SCH ×4 (08:43→21:19)
[2021-05-23] MEDS: Nystatin POWDER 30 GM BOTTLE TP SCH ×3 (08:44→21:37)
[2021-05-23] MEDS: cloNIDine HCL 0.1 MG TABLET PO SCH ×3 (08:44→21:19)
[2021-05-23] MEDS: Fluconazole 200 MG/100 ML 200 MG/100 ML BAG IVPB SCH (08:44)
[2021-05-23] MEDS: Insulin LISPRO 300 UNITS/3 ML VIAL SUBQ SCH ×4 (08:58→21:21)
[2021-05-23] MEDS ORDERED: Benzonatate 100 MG CAPSULE PO PRN (11:17)
[2021-05-23] MEDS: Acetylcysteine 10% 2 ML INHSOL IH SCH ×2 (16:52→21:04)
[2021-05-23] MEDS: Ipratropium/Albuterol Neb 3 ML IH SCH ×2 (16:52→21:03)
[2021-05-23] MEDS: Insulin DETEMIR 100 UNIT/ML X5UNITS SUBQ SCH (21:20)
[2021-05-24] MEDS: Artificial Tears SOLN 15 ML BOTTLE BOTH EYES SCH ×6 (00:40→21:11)
[2021-05-24] MEDS: MethylPREDNISolone 40 MG/ML VIAL IVP SCH ×3 (00:41→17:09)
[2021-05-24] MEDS: Haloperidol Lactate 5 MG/ML VIAL IVP SCH ×3 (04:04→21:12)
[2021-05-24] MEDS: Acetylcysteine 10% 2 ML INHSOL IH SCH ×4 (04:49→21:12)
[2021-05-24] MEDS: Ipratropium/Albuterol Neb 3 ML IH SCH ×4 (04:49→21:11)
[2021-05-24] MEDS: *HR* Heparin 5,000 UNIT/ML VIAL SQ SCH ×3 (05:37→21:42)
[2021-05-24] MEDS: Furosemide 40 MG/4 ML VIAL IVP SCH (09:30)
[2021-05-24] MEDS: cloNIDine HCL 0.1 MG TABLET PO SCH ×3 (09:31→21:12)
[2021-05-24] MEDS: Chlorhexidine Rinse 15 ML MOUTHWASH MM SCH ×2 (09:31→21:19)
[2021-05-24] MEDS: Nystatin SUSP 5 ML UD.LIQ BC SCH ×4 (09:31→21:12)
[2021-05-24] MEDS: Pantoprazole 40 MG VIAL IVP SCH (09:31)
[2021-05-24] MEDS: Gabapentin 300 MG CAPSULE PO SCH ×4 (09:31→21:12)
[2021-05-24] MEDS: Loratadine 10 MG TABLET PO SCH (09:32)
[2021-05-24] MEDS: Fluconazole 200 MG/100 ML 200 MG/100 ML BAG IVPB SCH (09:32)
[2021-05-24] MEDS: Insulin LISPRO 300 UNITS/3 ML VIAL SUBQ SCH ×4 (09:33→21:19)
[2021-05-24] MEDS: Nystatin POWDER 30 GM BOTTLE TP SCH ×3 (09:34→21:25)
[2021-05-24] MEDS: Albumin 25% 25gram/100mL 25 GM/100 ML IV.SOLN IVC SCH ×2 (10:39→10:40)
[2021-05-24 12:40] LABS: Hemoglobin 17.6 g/dL (11.5-15.4); Mean Corpuscular HGB Conc 29.9 g/dL (31.6-35.5); Mean Corpuscular Hemoglobin 26.9 pg (28.0-33.3); Mean Corpuscular Volume 89.8 fL (83.0-100.0); Mean Platelet Volume 11.4 fL (9.4-12.4); Platelet Count 261 K/mcL (140-400); Red Blood Count 6.55 M/mcL (3.82-4.97); Red Cell Distribution Width 13.5 % (11.5-14.5); White Blood Count 19.7 K/mcL (4.3-11.1)
[2021-05-24 12:59] LABS: Hematocrit 58.8 % (35.3-44.9)
[2021-05-24 13:24] LABS: BUN/Creatinine Ratio 58 (6-26); Blood Urea Nitrogen 33 mg/dL (8-23); Calcium 10.3 mg/dL (8.6-10.3); Carbon Dioxide 45 mEq/L (23-29); Chloride 82 mEq/L (98-107); Glucose 216 mg/dL (70-105); Magnesium 2.5 mg/dL (1.6-2.6); Osmolality,Calculated 304 (280-300); Potassium 3.4 mEq/L (3.5-5.1); Sodium 140 mEq/L (136-145); eGFR For African Americans > 60 (> 60); eGFR For Non-African Americans > 60 (> 60)
[2021-05-24] MEDS: Acetaminophen 325 MG TABLET PO PRN (21:11)
[2021-05-24] MEDS: Insulin DETEMIR 100 UNIT/ML X5UNITS SUBQ SCH (21:19)
[2021-05-25] MEDS: Artificial Tears SOLN 15 ML BOTTLE BOTH EYES SCH ×6 (00:04→20:46)
[2021-05-25] MEDS: MethylPREDNISolone 40 MG/ML VIAL IVP SCH ×3 (00:04→15:13)
[2021-05-25] MEDS ORDERED: Ketorolac 30 MG/ML VIAL IVP ONE (00:20)
[2021-05-25] MEDS: Ipratropium/Albuterol Neb 3 ML IH SCH ×4 (03:08→22:40)
[2021-05-25] MEDS: Acetylcysteine 10% 2 ML INHSOL IH SCH ×4 (03:08→22:40)
[2021-05-25] MEDS: *HR* Heparin 5,000 UNIT/ML VIAL SQ SCH ×3 (05:18→20:45)
[2021-05-25] MEDS: Acetaminophen 325 MG TABLET PO PRN ×3 (05:18→20:44)
[2021-05-25] MEDS: Haloperidol Lactate 5 MG/ML VIAL IVP SCH ×3 (05:19→20:46)
[2021-05-25 06:42] LABS: Hemoglobin 17.2 g/dL (11.5-15.4); Mean Corpuscular HGB Conc 29.8 g/dL (31.6-35.5); Mean Corpuscular Hemoglobin 27.3 pg (28.0-33.3); Mean Corpuscular Volume 91.6 fL (83.0-100.0); Platelet Count 236 K/mcL (140-400); Red Blood Count 6.31 M/mcL (3.82-4.97); Red Cell Distribution Width 13.4 % (11.5-14.5); White Blood Count 18.1 K/mcL (4.3-11.1)
[2021-05-25 06:56] LABS: Hematocrit 57.8 % (35.3-44.9)
[2021-05-25 07:09] LABS: BUN/Creatinine Ratio 48 (6-26); Blood Urea Nitrogen 45 mg/dL (8-23); Calcium 9.4 mg/dL (8.6-10.3); Carbon Dioxide 36 mEq/L (23-29); Chloride 79 mEq/L (98-107); Glucose 552 mg/dL (70-105); Magnesium 2.2 mg/dL (1.6-2.6); Osmolality,Calculated 307 (280-300); Potassium 3.7 mEq/L (3.5-5.1); Sodium 130 mEq/L (136-145); eGFR For African Americans > 60 (> 60); eGFR For Non-African Americans 60 (> 60)
[2021-05-25] MEDS ORDERED: Insulin LISPRO 300 UNITS/3 ML VIAL SUBQ ONE (07:25)
[2021-05-25] MEDS: Chlorhexidine Rinse 15 ML MOUTHWASH MM SCH ×2 (07:44→20:47)
[2021-05-25] MEDS: Nystatin SUSP 5 ML UD.LIQ BC SCH ×4 (07:45→20:45)
[2021-05-25] MEDS: Loratadine 10 MG TABLET PO SCH (07:47)
[2021-05-25] MEDS: Pantoprazole 40 MG VIAL IVP SCH (07:47)
[2021-05-25] MEDS: Gabapentin 300 MG CAPSULE PO SCH ×4 (07:47→20:44)
[2021-05-25] MEDS: cloNIDine HCL 0.1 MG TABLET PO SCH ×3 (07:47→20:45)
[2021-05-25] MEDS: Furosemide 40 MG/4 ML VIAL IVP SCH (07:48)
[2021-05-25] MEDS ORDERED: Insulin DETEMIR 100 UNIT/ML X5UNITS SUBQ ONE (08:16)
[2021-05-25] MEDS: Insulin LISPRO 300 UNITS/3 ML VIAL SUBQ SCH ×4 (08:34→20:49)
[2021-05-25] MEDS: Nystatin POWDER 30 GM BOTTLE TP SCH ×3 (08:35→20:46)
[2021-05-25] MEDS ORDERED: D5% in Water 1,000 ML IVC PRN (20:39)
[2021-05-25] MEDS ORDERED: Dextrose Gel 15 GM/37.5 ML TUBE PO PRN ×2 (20:39)
[2021-05-25] MEDS ORDERED: *HR* Dextrose 50 % in Water (Vial) 50 ML VIAL IVP PRN (20:46)
[2021-05-25] MEDS: Insulin DETEMIR 100 UNIT/ML X5UNITS SUBQ SCH (21:52)
[2021-05-26] MEDS: Artificial Tears SOLN 15 ML BOTTLE BOTH EYES SCH ×5 (00:57→16:15)
[2021-05-26] MEDS: MethylPREDNISolone 40 MG/ML VIAL IVP SCH ×4 (00:58→22:19)
[2021-05-26] MEDS: Acetylcysteine 10% 2 ML INHSOL IH SCH ×4 (03:48→22:50)
[2021-05-26] MEDS: Ipratropium/Albuterol Neb 3 ML IH SCH ×4 (03:48→22:50)
[2021-05-26] MEDS: Haloperidol Lactate 5 MG/ML VIAL IVP SCH ×3 (04:06→22:18)
[2021-05-26] MEDS: Acetaminophen 325 MG TABLET PO PRN (04:08)
[2021-05-26] MEDS ORDERED: *HR* LORazepam 2 MG/ML VIAL IVP ONE (04:59)
[2021-05-26] MEDS: *HR* Heparin 5,000 UNIT/ML VIAL SQ SCH ×3 (05:27→22:45)
[2021-05-26] MEDS: Dexmedetomidine HCl 400 MCG/100 ML MLS IVC SCH (07:13)
[2021-05-26 08:28] LABS: Basophils # 0.1 K/mcL (0.0-0.2); Basophils % 0.4 %; Immature Granulocytes % 2.5 % (0-4); Lymphocytes # 0.9 K/mcL (0.6-4.6); Lymphocytes % 4.5 %; Mean Corpuscular HGB Conc 30.7 g/dL (31.6-35.5); Mean Corpuscular Hemoglobin 26.4 pg (28.0-33.3); Mean Corpuscular Volume 86.2 fL (83.0-100.0); Mean Platelet Volume 12.5 fL (9.4-12.4); Monocytes # 1.4 K/mcL (0.0-1.3); Monocytes % 6.6 %; Neutrophils # 17.5 K/mcL (1.6-8.9); Platelet Count 255 K/mcL (140-400); Red Blood Count 6.81 M/mcL (3.82-4.97); Red Cell Distribution Width 13.2 % (11.5-14.5); White Blood Count 20.3 K/mcL (4.3-11.1)
[2021-05-26 08:29] LABS: Hematocrit 58.7 % (35.3-44.9)
[2021-05-26] MEDS: Chlorhexidine Rinse 15 ML MOUTHWASH MM SCH ×2 (08:32→22:19)
[2021-05-26] MEDS: cloNIDine HCL 0.1 MG TABLET PO SCH ×3 (08:32→22:21)
[2021-05-26] MEDS: Nystatin SUSP 5 ML UD.LIQ BC SCH ×4 (08:32→22:20)
[2021-05-26] MEDS: Pantoprazole 40 MG VIAL IVP SCH (08:32)
[2021-05-26] MEDS: Loratadine 10 MG TABLET PO SCH (08:32)
[2021-05-26] MEDS: Gabapentin 300 MG CAPSULE PO SCH ×4 (08:32→22:22)
[2021-05-26] MEDS: Furosemide 40 MG TABLET PO SCH (08:32)
[2021-05-26] MEDS: Insulin LISPRO 300 UNITS/3 ML VIAL SUBQ SCH ×4 (08:33→23:30)
[2021-05-26] MEDS: Nystatin POWDER 30 GM BOTTLE TP SCH ×3 (08:34→22:30)
[2021-05-26 08:51] LABS: BUN/Creatinine Ratio 50 (6-26); Blood Urea Nitrogen 30 mg/dL (8-23); Calcium 9.7 mg/dL (8.6-10.3); Carbon Dioxide 41 mEq/L (23-29); Chloride 84 mEq/L (98-107); Glucose 415 mg/dL (70-105); Osmolality,Calculated 304 (280-300); Potassium 3.6 mEq/L (3.5-5.1); Sodium 135 mEq/L (136-145); eGFR For African Americans > 60 (> 60); eGFR For Non-African Americans > 60 (> 60)
[2021-05-26] MEDS: *HR* HYDROcodone/Acet 5/325 mg TABLET PO PRN (16:44)
[2021-05-26] MEDS: Insulin DETEMIR 100 UNIT/ML X5UNITS SUBQ SCH (22:22)
[2021-05-26 23:55] LABS: BUN/Creatinine Ratio 38 (6-26); Blood Urea Nitrogen 27 mg/dL (8-23); Calcium 9.8 mg/dL (8.6-10.3); Carbon Dioxide 32 mEq/L (23-29); Chloride 85 mEq/L (98-107); Glucose 518 mg/dL (70-105); Osmolality,Calculated 302 (280-300); Potassium 4.1 mEq/L (3.5-5.1); Sodium 132 mEq/L (136-145); eGFR For African Americans > 60 (> 60); eGFR For Non-African Americans > 60 (> 60)
[2021-05-27] MEDS: Artificial Tears SOLN 15 ML BOTTLE BOTH EYES SCH ×3 (00:29→12:14)
[2021-05-27] MEDS: Acetylcysteine 10% 2 ML INHSOL IH SCH ×4 (05:15→21:49)
[2021-05-27] MEDS: Ipratropium/Albuterol Neb 3 ML IH SCH ×4 (05:15→21:49)
[2021-05-27 05:35] LABS: Basophils # 0.2 K/mcL (0.0-0.2); Basophils % 0.7 %; Hemoglobin 17.1 g/dL (11.5-15.4); Immature Granulocytes % 4.5 % (0-4); Lymphocytes # 1.1 K/mcL (0.6-4.6); Mean Corpuscular HGB Conc 30.3 g/dL (31.6-35.5); Mean Corpuscular Hemoglobin 26.4 pg (28.0-33.3); Mean Corpuscular Volume 87.2 fL (83.0-100.0); Mean Platelet Volume 12.2 fL (9.4-12.4); Monocytes # 1.4 K/mcL (0.0-1.3); Monocytes % 6.6 %; Neutrophils # 17.9 K/mcL (1.6-8.9); Platelet Count 231 K/mcL (140-400); Red Blood Count 6.48 M/mcL (3.82-4.97); Red Cell Distribution Width 12.9 % (11.5-14.5); Segmented Neutrophils % 83.2 %; White Blood Count 21.5 K/mcL (4.3-11.1)
[2021-05-27 05:38] LABS: Hematocrit 56.5 % (35.3-44.9)
[2021-05-27 05:51] LABS: BUN/Creatinine Ratio 38 (6-26); Blood Urea Nitrogen 25 mg/dL (8-23); Calcium 9.1 mg/dL (8.6-10.3); Carbon Dioxide 39 mEq/L (23-29); Chloride 87 mEq/L (98-107); Glucose 475 mg/dL (70-105); Osmolality,Calculated 305 (280-300); Potassium 3.7 mEq/L (3.5-5.1); Sodium 135 mEq/L (136-145); eGFR For African Americans > 60 (> 60); eGFR For Non-African Americans > 60 (> 60)
[2021-05-27] MEDS: Haloperidol Lactate 5 MG/ML VIAL IVP SCH ×2 (05:55→11:48)
[2021-05-27] MEDS: *HR* HYDROcodone/Acet 5/325 mg TABLET PO PRN ×2 (05:59→11:48)
[2021-05-27] MEDS: *HR* Heparin 5,000 UNIT/ML VIAL SQ SCH ×2 (06:00→14:45)
[2021-05-27 08:23] VITALS: TEMP 98.1
[2021-05-27] MEDS: Nystatin SUSP 5 ML UD.LIQ BC SCH ×3 (08:51→16:23)
[2021-05-27] MEDS: Chlorhexidine Rinse 15 ML MOUTHWASH MM SCH (08:51)
[2021-05-27] MEDS: Pantoprazole 40 MG VIAL IVP SCH (08:52)
[2021-05-27] MEDS: MethylPREDNISolone 40 MG/ML VIAL IVP SCH ×2 (08:52→16:23)
[2021-05-27] MEDS: Loratadine 10 MG TABLET PO SCH (08:52)
[2021-05-27] MEDS: Furosemide 40 MG TABLET PO SCH (08:53)
[2021-05-27] MEDS: Insulin LISPRO 300 UNITS/3 ML VIAL SUBQ SCH ×3 (08:53→16:26)
[2021-05-27] MEDS: cloNIDine HCL 0.1 MG TABLET PO SCH ×2 (08:53→14:45)
[2021-05-27] MEDS: Gabapentin 300 MG CAPSULE PO SCH ×3 (08:53→16:24)
[2021-05-27] MEDS: Nystatin POWDER 30 GM BOTTLE TP SCH ×2 (08:58→14:45)
[2021-05-27 16:49] VITALS: BP 152/88; PULSE 105; O2SAT 95
== END 2021-05-27 20:40 | disposition home health service (06) | DRG 208 ==
LOC: EMEROOARM 15:09 → 2ANU 15:09 → SUATTDRO 20:06 → 2ANU 20:55 → SUATTDRO 05-13 15:25 → ICNU 05-15 09:48 → 3NENU 05-20 18:06
PROVIDERS: ADMIT Internal Medicine; ATTEND Internal Medicine

== ENCOUNTER 2021-06-05 14:15 | Inpatient (IN) ==
[2021-06-05 15:15] LABS: Basophils % 0.4 %; Eosinophils # 0.2 K/mcL (0.0-0.6); Eosinophils % 1.7 %; Hematocrit 49.5 % (35.3-44.9); Hemoglobin 14.7 g/dL (11.5-15.4); Immature Granulocytes % 1.4 % (0-4); Lymphocytes # 1.7 K/mcL (0.6-4.6); Lymphocytes % 16.2 %; Mean Corpuscular HGB Conc 29.7 g/dL (31.6-35.5); Mean Corpuscular Hemoglobin 26.4 pg (28.0-33.3); Mean Corpuscular Volume 88.9 fL (83.0-100.0); Monocytes # 0.6 K/mcL (0.0-1.3); Monocytes % 5.4 %; Platelet Count 206 K/mcL (140-400); Red Blood Count 5.57 M/mcL (3.82-4.97); Red Cell Distribution Width 12.7 % (11.5-14.5); Segmented Neutrophils % 74.9 %; White Blood Count 10.7 K/mcL (4.3-11.1)
[2021-06-05] MEDS ORDERED: 0.9 % Sodium Chloride 1,000 ML IVC ONE (15:18)
[2021-06-05 15:43] LABS: BUN/Creatinine Ratio 42 (6-26); Blood Urea Nitrogen 20 mg/dL (8-23); Calcium 9.2 mg/dL (8.6-10.3); Carbon Dioxide 42 mEq/L (23-29); Chloride 91 mEq/L (98-107); Creatine Kinase 25 Units/L (30-223); Glucose 233 mg/dL (70-105); Osmolality,Calculated 294 (280-300); Potassium 3.6 mEq/L (3.5-5.1); Sodium 137 mEq/L (136-145); Troponin I < 0.03 ng/mL (< 0.04); eGFR For African Americans > 60 (> 60); eGFR For Non-African Americans > 60 (> 60)
[2021-06-05] MEDS ORDERED: Isovue-370 500 ML BOTTLE IVP ONE (16:44)
[2021-06-05 17:39] LABS: Influenza A PCR Negative (Negative); Influenza B PCR Negative (Negative); Resp. Syncytial Virus PCR Negative (Negative)
[2021-06-05 17:42] LABS: SARS-CoV-2 by PCR (In House) Negative (Negative)
[2021-06-05 17:45] LABS: Bacteria,Urine Few per hpf (None-Few); Bilirubin,Urine Negative (Negative); Blood,Urine Large (Negative); Clarity,Urine Ex.Turbid (Clear); Color,Urine Yellow (Yellow); Glucose,Urine (UA) Normal (Normal); Ketones,Urine 10 mg/dL (Negative); Leukocyte Esterase,Urine Moderate (Negative); Mucus,Urine Few per lpf (None-Few); Nitrite,Urine Negative (Negative); Protein,Urine 100 mg/dL (Neg-Trace); RBC,Urine TNTC per hpf (0-3); Specific Gravity,Urine 1.023 (1.010-1.025); WBC,Urine TNTC per hpf (0-3)
[2021-06-05 18:04] LABS: Amphetamine Screen,Urine Negative ng/mL (Cutoff=1000); Barbiturate Screen,Urine Negative ng/mL (Cutoff=200); Benzodiazepines Screen,Urine Negative ng/mL (Cutoff=200); Cannabinoid Screen,Urine Positive ng/mL (Cutoff = 50); Cocaine Screen,Urine Negative ng/mL (Cutoff= 300); Opiate Screen,Urine Positive ng/mL (Cutoff=300); Phencyclidine Screen,Urine Negative ng/mL (Cutoff=25)
[2021-06-05 18:21] LABS: ABG Base Excess 11 mEq/L (-2 to 3); ABG HCO3 40 mEq/L (21-27); ABG Oxygen Saturation 95 % (95-98); ABG PCO2 73 mmHg (35-45); ABG PH 7.35 pH Units (7.32-7.45); ABG PO2 84 mmHg (85-104); ABG TCO2 42 mEq/L (20-26)
[2021-06-05] MEDS ORDERED: cefTRIAXone 1,000 MG in 0.9 % Sodium Chloride Mini Bag 100 ML IVPB ONE (18:51)
[2021-06-05] MEDS ORDERED: methylPREDNISolone 125 MG/2 ML VIAL IVP ONE (18:52)
[2021-06-05] MEDS ORDERED: Azithromycin 500 MG in 0.9 % Sodium Chloride 250 ML IVPB ONE (19:35)
[2021-06-05] MEDS ORDERED: Naloxone 0.4 MG/ML INJ IVP PRN (21:03)
[2021-06-05] MEDS ORDERED: Ondansetron 4 MG/2 ML VIAL IVP PRN (21:03)
[2021-06-06] MEDS: MethylPREDNISolone 40 MG/ML VIAL IVP SCH ×4 (00:02→17:17)
[2021-06-06] MEDS: Ipratropium/Albuterol Neb 3 ML IH SCH ×6 (00:30→21:12)
[2021-06-06] MEDS: cefTRIAXone 1,000 MG in 0.9 % Sodium Chloride Mini Bag 100 ML IVPB SCH (07:50)
[2021-06-06] MEDS: Azithromycin 500 MG in 0.9 % Sodium Chloride 250 ML IVPB SCH (07:50)
[2021-06-06] MEDS: *HR* Enoxaparin 40 MG/0.4 ML SYRINGE SQ SCH (07:51)
[2021-06-06 07:53] LABS: Basophils % 0.3 %; Hematocrit 47.7 % (35.3-44.9); Hemoglobin 14.1 g/dL (11.5-15.4); Immature Granulocytes % 1.4 % (0-4); Lymphocytes # 0.5 K/mcL (0.6-4.6); Lymphocytes % 4.4 %; Mean Corpuscular HGB Conc 29.6 g/dL (31.6-35.5); Mean Corpuscular Hemoglobin 26.3 pg (28.0-33.3); Mean Platelet Volume 10.3 fL (9.4-12.4); Monocytes # 0.2 K/mcL (0.0-1.3); Monocytes % 1.4 %; Neutrophils # 11.5 K/mcL (1.6-8.9); Platelet Count 202 K/mcL (140-400); Red Blood Count 5.36 M/mcL (3.82-4.97); Red Cell Distribution Width 12.9 % (11.5-14.5); Segmented Neutrophils % 92.5 %; White Blood Count 12.4 K/mcL (4.3-11.1)
[2021-06-06 08:07] LABS: BUN/Creatinine Ratio 30 (6-26); Blood Urea Nitrogen 17 mg/dL (8-23); Carbon Dioxide 37 mEq/L (23-29); Chloride 93 mEq/L (98-107); Glucose 289 mg/dL (70-105); Osmolality,Calculated 294 (280-300); Potassium 4.3 mEq/L (3.5-5.1); Sodium 136 mEq/L (136-145); eGFR For African Americans > 60 (> 60); eGFR For Non-African Americans > 60 (> 60)
[2021-06-06] MEDS ORDERED: D5% in Water 1,000 ML IVC PRN (10:44)
[2021-06-06] MEDS ORDERED: Dextrose Gel 15 GM/37.5 ML TUBE PO PRN ×2 (10:44)
[2021-06-06] MEDS ORDERED: *HR* Dextrose 50 % in Water (Syg) 50 ML SYRINGE IVP PRN (10:44)
[2021-06-06 14:02] LABS: Procalcitonin 0.04 ng/mL (0.00-0.15)
[2021-06-06] MEDS: Insulin LISPRO 300 UNITS/3 ML VIAL SUBQ SCH ×3 (14:16→21:11)
[2021-06-06] MEDS: cloNIDine HCL 0.1 MG TABLET PO SCH (15:13)
[2021-06-06] MEDS: *HR* OxyCODONE/APAP 5/325 TABLET PO PRN ×2 (19:34)
[2021-06-07] MEDS: Ipratropium/Albuterol Neb 3 ML IH SCH ×7 (00:04→23:22)
[2021-06-07] MEDS: *HR* OxyCODONE/APAP 5/325 TABLET PO PRN ×5 (00:16→20:22)
[2021-06-07] MEDS ORDERED: Insulin Human Regular 5 UNIT in 0.9 % Sodium Chloride 10 ML IV ONE (00:49)
[2021-06-07] MEDS: MethylPREDNISolone 40 MG/ML VIAL IVP SCH ×4 (01:11→20:41)
[2021-06-07 05:33] LABS: Basophils % 0.2 %; Hematocrit 43.7 % (35.3-44.9); Hemoglobin 13.3 g/dL (11.5-15.4); Lymphocytes # 0.7 K/mcL (0.6-4.6); Lymphocytes % 5.4 %; Mean Corpuscular HGB Conc 30.4 g/dL (31.6-35.5); Mean Corpuscular Hemoglobin 26.5 pg (28.0-33.3); Mean Corpuscular Volume 87.2 fL (83.0-100.0); Mean Platelet Volume 10.2 fL (9.4-12.4); Monocytes # 0.6 K/mcL (0.0-1.3); Monocytes % 4.7 %; Neutrophils # 11.1 K/mcL (1.6-8.9); Platelet Count 189 K/mcL (140-400); Red Blood Count 5.01 M/mcL (3.82-4.97); Segmented Neutrophils % 88.7 %; White Blood Count 12.5 K/mcL (4.3-11.1)
[2021-06-07 05:38] LABS: VBG HCO3 34 mEq/L (21-27); VBG PCO2 50 mmHg (41-51); VBG PH 7.44 pH Units (7.32-7.42); VBG PO2 142 mmHg (25-50)
[2021-06-07 05:51] LABS: BUN/Creatinine Ratio 30 (6-26); Blood Urea Nitrogen 15 mg/dL (8-23); Calcium 8.9 mg/dL (8.6-10.3); Carbon Dioxide 34 mEq/L (23-29); Chloride 97 mEq/L (98-107); Glucose 310 mg/dL (70-105); Osmolality,Calculated 297 (280-300); Potassium 3.9 mEq/L (3.5-5.1); Sodium 137 mEq/L (136-145); eGFR For African Americans > 60 (> 60); eGFR For Non-African Americans > 60 (> 60)
[2021-06-07 06:09] LABS: Triiodothyronine (T3) Free 3.34 pg/mL (2.50-3.90)
[2021-06-07] MEDS: cefTRIAXone 1,000 MG in 0.9 % Sodium Chloride Mini Bag 100 ML IVPB SCH (07:45)
[2021-06-07] MEDS: *HR* Enoxaparin 40 MG/0.4 ML SYRINGE SQ SCH (07:45)
[2021-06-07] MEDS: Azithromycin 500 MG in 0.9 % Sodium Chloride 250 ML IVPB SCH (07:46)
[2021-06-07] MEDS: Acetaminophen 325 MG TABLET PO PRN ×2 (08:51→15:24)
[2021-06-07] MEDS: Insulin LISPRO 300 UNITS/3 ML VIAL SUBQ SCH ×4 (08:54→20:23)
[2021-06-07] MEDS ORDERED: Insulin Human Regular 15 UNIT in 0.9 % Sodium Chloride 10 ML IV ONE (11:43)
[2021-06-07 11:48] LABS: Estimated Average Glucose 229 mg/dl; Hemoglobin A1C 9.6 %
[2021-06-07] MEDS ORDERED: Insulin DETEMIR 100 UNIT/ML X5UNITS SUBQ ONE (12:49)
[2021-06-07] MEDS ORDERED: Nitrofurantoin (BID) 100 MG CAPSULE PO SCH (17:00)
[2021-06-07] MEDS: *HR* LORazepam 0.5 MG TABLET PO PRN (20:19)
[2021-06-07] MEDS: cloNIDine HCL 0.1 MG TABLET PO SCH (20:19)
[2021-06-07] MEDS: Insulin DETEMIR 100 UNIT/ML X5UNITS SUBQ SCH (20:22)
[2021-06-08 01:37] LABS: BUN/Creatinine Ratio 37 (6-26); Blood Urea Nitrogen 17 mg/dL (8-23); Calcium 8.8 mg/dL (8.6-10.3); Carbon Dioxide 32 mEq/L (23-29); Chloride 96 mEq/L (98-107); Glucose 327 mg/dL (70-105); Osmolality,Calculated 296 (280-300); Potassium 4.2 mEq/L (3.5-5.1); Sodium 136 mEq/L (136-145); eGFR For African Americans > 60 (> 60); eGFR For Non-African Americans > 60 (> 60)
[2021-06-08 01:46] LABS: Basophils % 0.2 %; Eosinophils % 0.1 %; Hematocrit 40.1 % (35.3-44.9); Hemoglobin 12.5 g/dL (11.5-15.4); Immature Granulocytes % 0.8 % (0-4); Lymphocytes # 0.7 K/mcL (0.6-4.6); Lymphocytes % 5.7 %; Mean Corpuscular HGB Conc 31.2 g/dL (31.6-35.5); Mean Corpuscular Hemoglobin 27.1 pg (28.0-33.3); Mean Corpuscular Volume 86.8 fL (83.0-100.0); Mean Platelet Volume 10.5 fL (9.4-12.4); Monocytes # 0.5 K/mcL (0.0-1.3); Monocytes % 3.8 %; Neutrophils # 11.7 K/mcL (1.6-8.9); Platelet Count 188 K/mcL (140-400); Red Blood Count 4.62 M/mcL (3.82-4.97); Red Cell Distribution Width 13.2 % (11.5-14.5); Segmented Neutrophils % 89.4 %
[2021-06-08] MEDS: Ipratropium/Albuterol Neb 3 ML IH SCH ×6 (03:37→23:29)
[2021-06-08] MEDS: *HR* OxyCODONE/APAP 5/325 TABLET PO PRN ×4 (04:20→21:16)
[2021-06-08] MEDS: *HR* Enoxaparin 40 MG/0.4 ML SYRINGE SQ SCH (06:16)
[2021-06-08] MEDS: MethylPREDNISolone 40 MG/ML VIAL IVP SCH (08:27)
[2021-06-08] MEDS: *HR* Metformin 500 MG TABLET PO SCH ×2 (08:29→17:41)
[2021-06-08] MEDS: Azithromycin 500 MG in 0.9 % Sodium Chloride 250 ML IVPB SCH (08:30)
[2021-06-08] MEDS: Insulin LISPRO 300 UNITS/3 ML VIAL SUBQ SCH ×4 (08:31→21:03)
[2021-06-08] MEDS: Ampicillin/Sulbactam 3,000 MG in 0.9 % Sodium Chloride Mini Bag 100 ML IVPB SCH (17:42)
[2021-06-08] MEDS: cloNIDine HCL 0.1 MG TABLET PO SCH (21:17)
[2021-06-08] MEDS: Melatonin 3 MG TABLET PO PRN (21:17)
[2021-06-08] MEDS: *HR* LORazepam 0.5 MG TABLET PO PRN (21:17)
[2021-06-08] MEDS: Insulin DETEMIR 100 UNIT/ML X5UNITS SUBQ SCH (21:18)
[2021-06-09] MEDS: Ampicillin/Sulbactam 3,000 MG in 0.9 % Sodium Chloride Mini Bag 100 ML IVPB SCH ×4 (01:36→17:14)
[2021-06-09] MEDS: *HR* OxyCODONE/APAP 5/325 TABLET PO PRN ×5 (02:31→22:19)
[2021-06-09] MEDS: Ipratropium/Albuterol Neb 3 ML IH SCH ×5 (03:47→20:04)
[2021-06-09] MEDS: Acetaminophen 325 MG TABLET PO PRN (05:50)
[2021-06-09 06:19] LABS: Hematocrit 37.8 % (35.3-44.9); Hemoglobin 11.5 g/dL (11.5-15.4); Mean Corpuscular HGB Conc 30.4 g/dL (31.6-35.5); Mean Corpuscular Hemoglobin 26.7 pg (28.0-33.3); Mean Corpuscular Volume 87.9 fL (83.0-100.0); Mean Platelet Volume 10.1 fL (9.4-12.4); Platelet Count 156 K/mcL (140-400); Red Cell Distribution Width 13.4 % (11.5-14.5); White Blood Count 11.2 K/mcL (4.3-11.1)
[2021-06-09 06:39] LABS: BUN/Creatinine Ratio 30 (6-26); Blood Urea Nitrogen 14 mg/dL (8-23); Calcium 8.6 mg/dL (8.6-10.3); Carbon Dioxide 34 mEq/L (23-29); Chloride 99 mEq/L (98-107); Glucose 140 mg/dL (70-105); Osmolality,Calculated 289 (280-300); Potassium 3.9 mEq/L (3.5-5.1); Sodium 138 mEq/L (136-145); eGFR For African Americans > 60 (> 60); eGFR For Non-African Americans > 60 (> 60)
[2021-06-09] MEDS: *HR* Metformin 500 MG TABLET PO SCH ×2 (07:49→17:14)
[2021-06-09] MEDS: MethylPREDNISolone 40 MG/ML VIAL IVP SCH (07:49)
[2021-06-09] MEDS: Insulin LISPRO 300 UNITS/3 ML VIAL SUBQ SCH ×4 (07:50→21:58)
[2021-06-09] MEDS ORDERED: Insulin DETEMIR 100 UNIT/ML X5UNITS SUBQ SCH (21:00)
[2021-06-09] MEDS: cloNIDine HCL 0.1 MG TABLET PO SCH (21:57)
[2021-06-09] MEDS: *HR* LORazepam 0.5 MG TABLET PO PRN (22:19)
[2021-06-10] MEDS: Ipratropium/Albuterol Neb 3 ML IH SCH ×6 (00:37→20:49)
[2021-06-10] MEDS: Ampicillin/Sulbactam 3,000 MG in 0.9 % Sodium Chloride Mini Bag 100 ML IVPB SCH ×4 (00:55→17:34)
[2021-06-10 01:34] LABS: Hematocrit 39.2 % (35.3-44.9); Hemoglobin 11.8 g/dL (11.5-15.4); Mean Corpuscular HGB Conc 30.1 g/dL (31.6-35.5); Mean Corpuscular Volume 86.5 fL (83.0-100.0); Mean Platelet Volume 10.4 fL (9.4-12.4); Platelet Count 181 K/mcL (140-400); Red Blood Count 4.53 M/mcL (3.82-4.97); Red Cell Distribution Width 13.2 % (11.5-14.5)
[2021-06-10 01:53] LABS: BUN/Creatinine Ratio 29 (6-26); Blood Urea Nitrogen 14 mg/dL (8-23); Calcium 8.8 mg/dL (8.6-10.3); Carbon Dioxide 30 mEq/L (23-29); Chloride 98 mEq/L (98-107); Glucose 197 mg/dL (70-105); Magnesium 1.6 mg/dL (1.6-2.6); Osmolality,Calculated 288 (280-300); Phosphorous 3.2 mg/dL (2.7-4.5); Potassium 3.9 mEq/L (3.5-5.1); Sodium 136 mEq/L (136-145); eGFR For African Americans > 60 (> 60); eGFR For Non-African Americans > 60 (> 60)
[2021-06-10] MEDS: *HR* OxyCODONE/APAP 5/325 TABLET PO PRN ×4 (04:45→21:13)
[2021-06-10] MEDS: Insulin LISPRO 300 UNITS/3 ML VIAL SUBQ SCH ×4 (07:28→21:25)
[2021-06-10] MEDS: *HR* Metformin 500 MG TABLET PO SCH ×2 (09:32→17:33)
[2021-06-10] MEDS: MethylPREDNISolone 40 MG/ML VIAL IVP SCH (09:32)
[2021-06-10] MEDS: *HR* LORazepam 0.5 MG TABLET PO SCH ×2 (15:12→21:13)
[2021-06-10] MEDS: cloNIDine HCL 0.1 MG TABLET PO SCH (21:12)
[2021-06-10] MEDS: Melatonin 3 MG TABLET PO PRN (21:14)
[2021-06-10] MEDS: Insulin DETEMIR 100 UNIT/ML X5UNITS SUBQ SCH (21:17)
[2021-06-11] MEDS: Ampicillin/Sulbactam 3,000 MG in 0.9 % Sodium Chloride Mini Bag 100 ML IVPB SCH ×4 (00:17→16:45)
[2021-06-11] MEDS: Ipratropium/Albuterol Neb 3 ML IH SCH ×7 (00:47→23:31)
[2021-06-11] MEDS: *HR* OxyCODONE/APAP 5/325 TABLET PO PRN ×4 (05:12→23:03)
[2021-06-11 07:14] LABS: Hematocrit 39.9 % (35.3-44.9); Hemoglobin 12.5 g/dL (11.5-15.4); Mean Corpuscular HGB Conc 31.3 g/dL (31.6-35.5); Mean Corpuscular Hemoglobin 27.1 pg (28.0-33.3); Mean Corpuscular Volume 86.4 fL (83.0-100.0); Mean Platelet Volume 10.1 fL (9.4-12.4); Platelet Count 228 K/mcL (140-400); Red Blood Count 4.62 M/mcL (3.82-4.97); Red Cell Distribution Width 13.3 % (11.5-14.5); White Blood Count 11.2 K/mcL (4.3-11.1)
[2021-06-11 07:37] LABS: BUN/Creatinine Ratio 43 (6-26); Blood Urea Nitrogen 17 mg/dL (8-23); Calcium 8.7 mg/dL (8.6-10.3); Carbon Dioxide 32 mEq/L (23-29); Chloride 97 mEq/L (98-107); Glucose 142 mg/dL (70-105); Osmolality,Calculated 288 (280-300); Potassium 3.9 mEq/L (3.5-5.1); Sodium 137 mEq/L (136-145); eGFR For African Americans > 60 (> 60); eGFR For Non-African Americans > 60 (> 60)
[2021-06-11] MEDS: *HR* Metformin 500 MG TABLET PO SCH ×2 (07:58→16:45)
[2021-06-11] MEDS: Sennosides/Docusate Sodium TABLET PO SCH ×2 (07:58→21:21)
[2021-06-11] MEDS: *HR* LORazepam 0.5 MG TABLET PO SCH ×3 (07:58→21:21)
[2021-06-11] MEDS: predniSONE 20 MG TABLET PO SCH (07:59)
[2021-06-11] MEDS: Insulin LISPRO 300 UNITS/3 ML VIAL SUBQ SCH ×4 (09:41→21:20)
[2021-06-11] MEDS: cloNIDine HCL 0.1 MG TABLET PO SCH (21:21)
[2021-06-11] MEDS: Insulin DETEMIR 100 UNIT/ML X5UNITS SUBQ SCH (22:01)
[2021-06-12] MEDS: Ampicillin/Sulbactam 3,000 MG in 0.9 % Sodium Chloride Mini Bag 100 ML IVPB SCH ×3 (00:20→11:54)
[2021-06-12] MEDS: Ipratropium/Albuterol Neb 3 ML IH SCH ×6 (03:58→23:17)
[2021-06-12] MEDS: *HR* OxyCODONE/APAP 5/325 TABLET PO PRN ×3 (06:48→15:42)
[2021-06-12] MEDS: *HR* LORazepam 0.5 MG TABLET PO SCH (08:25)
[2021-06-12] MEDS: predniSONE 20 MG TABLET PO SCH (08:25)
[2021-06-12] MEDS: *HR* Metformin 500 MG TABLET PO SCH ×2 (08:25→15:43)
[2021-06-12] MEDS: Sennosides/Docusate Sodium TABLET PO SCH ×2 (08:26→21:00)
[2021-06-12] MEDS: Insulin LISPRO 300 UNITS/3 ML VIAL SUBQ SCH ×4 (08:37→21:01)
[2021-06-12] MEDS: *HR* LORazepam 0.5 MG TABLET PO PRN (15:43)
[2021-06-12] MEDS: cloNIDine HCL 0.1 MG TABLET PO SCH (20:59)
[2021-06-12] MEDS: Amoxicillin 500 MG CAPSULE PO SCH (20:59)
[2021-06-12] MEDS: Insulin DETEMIR 100 UNIT/ML X5UNITS SUBQ SCH (21:01)
[2021-06-12] MEDS: Melatonin 3 MG TABLET PO PRN (21:12)
[2021-06-13] MEDS: *HR* LORazepam 0.5 MG TABLET PO PRN ×2 (00:23→08:41)
[2021-06-13] MEDS: Ipratropium/Albuterol Neb 3 ML IH SCH ×4 (03:48→15:29)
[2021-06-13] MEDS: Amoxicillin 500 MG CAPSULE PO SCH ×2 (08:38→16:41)
[2021-06-13] MEDS: predniSONE 20 MG TABLET PO SCH (08:41)
[2021-06-13] MEDS: *HR* OxyCODONE/APAP 5/325 TABLET PO PRN ×3 (08:41→19:13)
[2021-06-13] MEDS: Sennosides/Docusate Sodium TABLET PO SCH (08:41)
[2021-06-13] MEDS: *HR* Metformin 500 MG TABLET PO SCH ×2 (08:41→16:41)
[2021-06-13] MEDS: Insulin LISPRO 300 UNITS/3 ML VIAL SUBQ SCH ×3 (08:41→16:42)
[2021-06-13 15:36] VITALS: BP 134/88; PULSE 106; TEMP 97.5; O2SAT 96
[2021-06-14] MEDS ORDERED: polyethylene glycoL 3350 17 GM POWD.PACK PO SCH (09:00)
== END 2021-06-13 19:26 | DRG 689 ==
LOC: EMEROOARM 14:15 → 2ANU 14:15 → SUATTDRO 20:56 → 2ANU 20:57 → 3ANU 21:04
PROVIDERS: ADMIT Internal Medicine; ATTEND Pharmacist